=== PATIENT | male | born 1950 | race Caucasian/White ===

== ENCOUNTER → 2021-09-16 11:34 | Outpatient (CLI) | payer MEDICARE, MEDICAID, SELFPAY ==
[2021-09-16 20:06] LABS: Hemoglobin A1C% w Est Avg Glu 5.7 % (4.0-6.0)
[2021-09-16 20:11] LABS: Add Manual Diff / Slide Review NO; Alanine Aminotransferase 29 IU/L (<50); Albumin 4.1 g/dL (3.5-5.0); Albumin Globulin Ratio 1.3 (1.0-2.8); Alkaline Phosphatase 78 U/L (38-126); Aspartate Aminotransferase 28 IU/L (17-59); BUN Creatinine Ratio 15.1 (6-22); Basophils Absolute Auto 100 /uL (0-100); Basophils Percent Auto 0.8 % (0-2); Bilirubin Total 0.5 mg/dL (0.2-1.3); Blood Urea Nitrogen 13 mg/dL (9-20); Calcium 9.1 mg/dL (8.4-10.2); Carbon Dioxide 25 mmol/L (22-32); Chloride 105 mmol/L (98-107); Cholesterol 204 mg/dL (140-199); Eosinophils Absolute Auto 200 /uL (0-450); Eosinophils Percent Auto 3.3 % (2-4); Estimated Glomerular Filt Rate > 60 mL/min (>60); Globulin 3.1 g/dL (1.7-4.1); Glucose 87 mg/dL (80-110); HDL Cholesterol 39 mg/dL (40-60); HEMOLYSIS < 15 (0-50); Hemoglobin 13.9 g/dL (13.5-17.5); LDL Cholesterol Calculated 119 mg/dL (<100); Lymphocytes Absolute Auto 1400 /uL (1100-4500); Lymphocytes Percent Auto 19.5 % (25-40); Mean Corpuscular HGB Conc 34.6 % (30-36); Mean Corpuscular Hemoglobin 31.8 PG (26-34); Mean Corpuscular Volume 91.8 fL (80-100); Monocytes Absolute Auto 600 /uL (0-900); Monocytes Percent Auto 8.8 % (3-14); Neutrophils Absolute Auto 4800 /uL (1500-7000); Neutrophils Percent Auto 67.6 % (50-75); Platelet Count 235 X10^3/uL (150-400); Potassium 4.2 mmol/L (3.4-5.1); Red Blood Cell Count 4.36 X10^6/uL (4.5-5.9); Red Cell Distribution Width 12.9 % (11.6-14.8); Sodium 138 mmol/L (137-145); Total Protein 7.2 g/dL (6.3-8.2); Triglycerides 229 mg/dL (35-150); White Blood Cell Count 7.2 X10^3/uL (4.5-11.0)
[2021-09-16 20:26] LABS: Free T3, Triiodothyronine Free 3.23 pg/mL (2.77-5.27)
[2021-09-16 20:40] LABS: TSH w/ Reflex to FT4 2.59 uIU/mL (0.47-4.68)
== END ==
PROVIDERS: PCP Physician Assistant Medical; Visit Provider Physician Assistant Medical
DX: E78.5 Hyperlipidemia, unspecified (principal); E03.9 Hypothyroidism, unspecified; I10 Essential (primary) hypertension; R73.9 Hyperglycemia, unspecified; Z12.11 Encounter for screening for malignant neoplasm of colon
CPT/HCPCS: 80053; 80061; 83036; 84443; 84481; 85025

== ENCOUNTER → 2022-03-04 12:38 | Outpatient (CLI) | payer MEDICARE, MEDICAID, SELFPAY ==
--- NOTE | 2022-03-04 | DI.ECHO.S_ITS ---
[facility]---------+ [facility] +---------+ : : [address] : : : : [id number] : : : : Phone: [phone]+ Echocardiogram Report + + :Name: MARI MARIE Study Date: 03/04/2022 Height: 65 in : :[facility] ReadingLocation: Weight: 185 lb : : Gender: Male BSA: 1.9 m2 : :: 1950 Age: 71 yrs BP: 145/86 mmHg: :Reason For Study: ABNORMAL ELECTROCARDIOGRAM : :Ordering Physician: ROYA, : :DEMETRA Ibarra Performed By: Marian Rai : :Referring: DEMETRA HAN : + + Interpretation Summary The ejection fraction is estimated to be 60-65%. Diastolic function could not be accurately assessed due to contradictory data. The right ventricle is normal in size and function. The left atrium is mildly dilated. There is trace aortic regurgitation. There is mild tricuspid regurgitation. The right ventricular systolic pressure is estimated to be at least 28 mmHg based on an estimated right atrial pressure of 8 mm Hg. Procedure: A two-dimensional transthoracic echocardiogram with color flow and Doppler was performed. The study quality was technically adequate. There is no prior echocardiogram noted for this patient. The patient was in sinus bradycardia with heart rates between 48-59 bpm during the exam. Left Ventricle: The left ventricle is normal in size. Proximal septal thickening is noted. The ejection fraction is estimated to be 60-65%. Diastolic function could not be accurately assessed due to contradictory data. Right Ventricle: The right ventricle is normal in size and function. Atria: The left atrium is mildly dilated. Right atrial size is normal. There is no Doppler evidence for an interatrial shunt. Mitral Valve: The mitral valve is normal in structure and function. There is trace mitral regurgitation. Aortic Valve: The aortic valve is trileaflet. The aortic valve opens well. There is no aortic valve stenosis. There is trace aortic regurgitation. Tricuspid Valve: The tricuspid valve is normal in structure and function. There is mild tricuspid regurgitation. The right ventricular systolic pressure is estimated to be at least 28 mmHg based on an estimated right atrial pressure of 8 mm Hg. Pulmonic Valve: The pulmonic valve is not well seen, but is grossly normal. There is mild pulmonic regurgitation. Great Vessels: The aortic root is normal size. The dimensions of the ascending aorta are normal. The IVC is dilated (diameter is greater than 2.1 cm) yet it collapses greater than 50% with a sniff. This suggests a right atrial pressure of 8 mm Hg. Pericardium/ Pleura There is no pericardial effusion. There is no pleural effusion. MMode/2D Measurements & Calculations LVIDd: 5.0 cm LVOT diam: 2.3 cm LVIDs: 3.2 cm Ao root diam: 3.4 cm FS: 36.1 % asc Aorta Diam: 3.9 cm IVSd: 0.93 cm LVPWd: 1.1 cm LV guzman. diameter/BSA (cm/m^2): 2.6 LV sys. diameter/BSA (cm/m^2): 1.7 LA A2 area: 20.7 cm2 RA long axis: 5.4 cm LA A4 area: 22.0 cm2 RA area: 19.5 cm2 LA length (vol): 5.6 cm RA vol: 59.1 ml LA vol: 68.4 ml RA : 30.9 ml/m2 LA vol index: 35.7 ml/m2 IVC diam: 2.2 cm RVD1 (basal): 4.0 cm TAPSE: 1.8 cm Doppler Measurements & Calculations Ao V2 max: 116.7 cm/sec LVOT Max Naren: 105.1 cm/sec Ao V2 mean: 85.5 cm/sec LV V1 max P.4 mmHg Ao max P.4 mmHg LV V1 VTI: 23.8 cm Ao mean P.2 mmHg LUIS MIGUEL(I,D): 3.7 cm2 Ao V2 VTI: 26.4 cm LUIS MIGUEL(V,D): 3.7 cm2 sev ratio: 0.90 LUIS MIGUEL indexed to BSA (cm^2/m^2): 2.0 MV E max naren: 73.5 cm/sec TR max naren: 222.5 cm/sec MV A max naren: 57.9 cm/sec TR max P.8 mmHg MV E/A: 1.3 PA V2 max: 109.6 cm/sec Med Peak E' Naren: 5.0 cm/sec PA V2 mean: 73.7 cm/sec E/E' med: 14.8 PA mean P.6 mmHg Lat Peak E' Naren: 11.6 cm/sec E/E' lat: 6.3 E/e' average: 10.5 MV dec time: 0.22 sec [facility] 98.7 ml Reading Physician:04:32 PM
== END ==
PROVIDERS: PCP Physician Assistant Medical; Referring Provider Internal Medicine Cardiovascular Disease; Visit Provider Internal Medicine Cardiovascular Disease
DX: I37.1 Nonrheumatic pulmonary valve insufficiency (principal); I07.1 Rheumatic tricuspid insufficiency; R94.31 Abnormal electrocardiogram [ECG] [EKG]
CPT/HCPCS: 93306

== ENCOUNTER → 2022-05-03 08:41 | Outpatient (CLI) | payer MEDICARE, MEDICAID, SELFPAY ==
[2022-05-03 19:16] LABS: Cholesterol 140 mg/dL (140-199); HDL Cholesterol 49 mg/dL (40-60); LDL Cholesterol Calculated 62 mg/dL (<100); Triglycerides 146 mg/dL (35-150)
== END ==
PROVIDERS: PCP Physician Assistant Medical; Visit Provider Physician Assistant Medical
DX: E78.5 Hyperlipidemia, unspecified (principal)
CPT/HCPCS: 80061

== ENCOUNTER → 2022-11-11 09:32 | Outpatient (CLI) | payer MEDICARE, SELFPAY ==
[2022-11-11 20:01] LABS: Add Manual Diff / Slide Review NO; Basophils Absolute Auto 100 /uL (0-100); Basophils Percent Auto 0.9 % (0-2); Eosinophils Absolute Auto 300 /uL (0-450); Hematocrit 41.5 % (41-53); Hemoglobin 14.1 g/dL (13.5-17.5); Lymphocytes Absolute Auto 1300 /uL (1100-4500); Lymphocytes Percent Auto 18.6 % (25-40); Mean Corpuscular Hemoglobin 31.9 PG (26-34); Mean Corpuscular Volume 93.9 fL (80-100); Monocytes Absolute Auto 600 /uL (0-900); Monocytes Percent Auto 8.6 % (3-14); Neutrophils Absolute Auto 4700 /uL (1500-7000); Neutrophils Percent Auto 67.9 % (50-75); Platelet Count 268 X10^3/uL (150-400); Red Blood Cell Count 4.42 X10^6/uL (4.5-5.9); White Blood Cell Count 6.9 X10^3/uL (4.5-11.0)
[2022-11-11 20:15] LABS: Alanine Aminotransferase 30 IU/L (<50); Albumin 4.2 g/dL (3.5-5.0); Albumin Globulin Ratio 1.4 (1.0-2.8); Alkaline Phosphatase 62 U/L (38-126); Aspartate Aminotransferase 29 IU/L (17-59); BUN Creatinine Ratio 16.7 (6-22); Bilirubin Total 0.5 mg/dL (0.2-1.3); Blood Urea Nitrogen 14 mg/dL (9-20); Calcium 9.7 mg/dL (8.4-10.2); Carbon Dioxide 29 mmol/L (22-32); Chloride 103 mmol/L (98-107); Cholesterol 126 mg/dL (140-199); Estimated Glomerular Filt Rate > 60 mL/min (>60); Glucose 86 mg/dL (80-110); HDL Cholesterol 46 mg/dL (40-60); HEMOLYSIS < 15 (0-50); LDL Cholesterol Calculated 52 mg/dL (<100); Potassium 4.6 mmol/L (3.4-5.1); Sodium 137 mmol/L (137-145); Total Protein 7.2 g/dL (6.3-8.2); Triglycerides 139 mg/dL (35-150)
[2022-11-11 20:38] LABS: Prostate Specific Antigen 1.29 ng/mL (0.10-4.00)
[2022-11-11 20:44] LABS: TSH w/ Reflex to FT4 2.16 uIU/mL (0.47-4.68)
== END ==
PROVIDERS: PCP Physician Assistant Medical; Visit Provider Physician Assistant Medical
DX: E78.5 Hyperlipidemia, unspecified (principal); Z12.5 Encounter for screening for malignant neoplasm of prostate; Z13.1 Encounter for screening for diabetes mellitus; Z13.220 Encounter for screening for lipoid disorders
CPT/HCPCS: 80053; 80061; 84153; 84443; 85025; G0103

== ENCOUNTER → 2024-01-19 10:05 | Outpatient (CLI) | payer MEDICARE, SELFPAY ==
[2024-01-19 20:11] LABS: Hemoglobin A1C% w Est Avg Glu 5.5 % (4.0-6.0)
[2024-01-19 20:18] LABS: Alanine Aminotransferase 25 IU/L (<50); Albumin 4.2 g/dL (3.5-5.0); Albumin Globulin Ratio 1.4 (1.0-2.8); Alkaline Phosphatase 77 U/L (38-126); Aspartate Aminotransferase 33 IU/L (17-59); BUN Creatinine Ratio 18.9 (6-22); Bilirubin Total 0.5 mg/dL (0.2-1.3); Blood Urea Nitrogen 18 mg/dL (9-20); Calcium 9.4 mg/dL (8.4-10.2); Carbon Dioxide 27 mmol/L (22-32); Chloride 105 mmol/L (98-107); Cholesterol 263 mg/dL (140-199); Estimated Glomerular Filt Rate > 60 mL/min (>60); Globulin 3.1 g/dL (1.7-4.1); Glucose 82 mg/dL (80-110); HDL Cholesterol 44 mg/dL (40-60); HEMOLYSIS 17 (0-50); LDL Cholesterol Calculated 192 mg/dL (<100); Potassium 4.3 mmol/L (3.4-5.1); Sodium 139 mmol/L (137-145); Total Protein 7.3 g/dL (6.3-8.2); Triglycerides 137 mg/dL (35-150)
[2024-01-19 20:43] LABS: TSH w/ Reflex to FT4 2.92 uIU/mL (0.47-4.68)
[2024-01-19 20:53] LABS: Prostate Specific Antigen 1.55 ng/mL (0.10-4.00)
[2024-01-19 20:54] LABS: Microalbumin Urine Random 0.9 mg/dL (0-1.6)
== END ==
PROVIDERS: PCP Physician Assistant Medical; Visit Provider Physician Assistant Medical
DX: E11.9 Type 2 diabetes mellitus without complications (principal); E03.9 Hypothyroidism, unspecified; N40.0 Benign prostatic hyperplasia without lower urinary tract symptoms
CPT/HCPCS: 80053; 80061; 82043; 82570; 83036; 84153; 84443